=== PATIENT | male | born 2005 | race Caucasian/White ===

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

== ENCOUNTER 2024-12-27 17:16 | Emergency (ER) | payer OTHER | END 2024-12-27 19:11 | disposition home or self-care (01) | LOC: NAV ERS 17:16 | DX: S52.501A Unspecified fracture of the lower end of right radius, initial encounter for closed fracture (principal); S52.611A Displaced fracture of right ulna styloid process, initial encounter for closed fracture; I10 Essential (primary) hypertension; F17.220 Nicotine dependence, chewing tobacco, uncomplicated; W55.22XA Struck by cow, initial encounter; Y93.89 Activity, other specified | CPT/HCPCS: 29125 ==